=== PATIENT | female | born 1980 | race American Indian/Alaskan Native ===

== ENCOUNTER 2017-11-14 10:50 | Outpatient (CLI) | payer BC ==
--- NOTE | 2017-11-14 11:35 | Ultrasound Report ---
Bilateral mammogram and left axillary ultrasound: Baseline mammogram. Patient presents with having felt palpable lumps in her left axilla having resolved with antibiotic therapy and does not currently feel a lump. Routine mammographic images demonstrates a generally fatty replaced breast pattern. No focal mass, architectural distortion, nor calcification identified. Ultrasound over the area in the axilla with the patient indicated prior palpable findings is unremarkable. CAD used. Impression: Normal mammogram and negative left axillary ultrasound. Recommendation: Clinical followup and age-appropriate mammogram followup. Any additional evaluation at this time should be based on your concern. BI-RADS CATEGORY: 1 = Negative ACR BI-RADS MAMMOGRAPHIC CODES: 0 = Needs additional imaging evaluation; 1 = Negative; 2 = Benign; 3 = Probably benign; 4 = Suspicious; 5 = Malignant; 6 = Known biopsy-proven malignancy COMMENT: 1. Dense breast tissue, i.e., adenosis, fibrocystic changes, etc., may obscure an underlying neoplasm. 2. Approximately 10% of cancers are not detected with mammography. 3. A negative mammography report should not delay biopsy if a clinically suspicious mass is present.
== END 2017-11-14 10:51 | disposition home or self-care (01) ==
LOC: SPVWC 10:50
PROVIDERS: ATTEND Family Medicine
DX: Z12.31 Encounter for screening mammogram for malignant neoplasm of breast (principal); R59.0 Localized enlarged lymph nodes
CPT/HCPCS: 76642; G0202; 77067